=== PATIENT | female | born 1995 | race African-American/Black ===

== ENCOUNTER 2023-05-22 12:15 | Inpatient (IN) | payer OTHER ==
[2023-05-22] MEDS ORDERED: BETAMET ACET/BETAMET NA PH 30 MG/5 ML VIAL IM SCH (14:00)
[2023-05-22] MEDS ORDERED: BETAMET ACET/BETAMET NA PH 30 MG/5 ML VIAL ONE (15:15)
[2023-05-22 16:03] VITALS: BMI 35.1
[2023-05-22 16:41] LABS: BASO % 0.1 % (0-2.0); EOS % 0.2 % (0-4.5); HEMATOCRIT 30.5 % (32.4-45.2); MCH 25.9 pg (25.7-33.7); MCHC 32.7 g/dl (32.0-36.0); MEAN CELL VOLUME 79.2 fl (80-96); MEAN PLT VOLUME 9.3 fl (7.5-11.1); MONO % 9.6 % (3.8-10.2); NEUT % 71.1 % (42.8-82.8); PLATELET COUNT 185 10^3/uL (134-434); RBC 3.85 M/mm3 (3.60-5.2); RDW 21.4 % (11.6-15.6); WHITE BLOOD COUNT 7.9 K/mm3 (4.0-10.0)
[2023-05-22 16:45] LABS: POTASSIUM 3.9 mmol/L (3.5-5.1)
[2023-05-22 16:47] LABS: CALCIUM 8.7 mg/dL (8.5-10.1)
[2023-05-22 16:48] LABS: BLOOD UREA NITROGEN 4.6 mg/dL (7-18)
[2023-05-22 16:51] LABS: CREATININE 0.6 mg/dL (0.55-1.3); INR 0.99 (0.83-1.09); PROTHROMBIN TIME (PATIENT) 11.5 SEC (9.7-13.0)
[2023-05-22 16:53] LABS: URIC ACID 3.3 mg/dL (2.6-7.2)
[2023-05-22 16:54] LABS: ACTIVATED PTT 25.3 SECONDS (25.2-36.5)
[2023-05-22 17:41] LABS: HIV INTERPRETATION NEGATIVE (NEGATIVE)
[2023-05-22 23:53] LABS: ANISOCYTOSIS 2+; MACROCYTOSIS 0; OVALOCYTE 1+
[2023-05-23 04:53] VITALS: BP 141/85; PULSE 81; RESP 18; TEMP 98.3
== END 2023-05-23 00:40 | disposition short-term general hospital (02) | DRG 566 ==
LOC: JDEL 12:15 → JLDR 14:15
PROVIDERS: ADMIT Obstetrics & Gynecology; ATTEND Obstetrics & Gynecology
DX: O36.5930 Maternal care for other known or suspected poor fetal growth, third trimester, not applicable or unspecified (principal); O16.3 Unspecified maternal hypertension, third trimester; Z3A.32 32 weeks gestation of pregnancy
CPT/HCPCS: 36415; 59025; 80048; 82977; 83010; 84450; 84460; 84550; 85025; 85045; 85610; 85730; 86780; 86850; 86870; 86900; 86901; 86902; 87389; 87635; 96372